=== PATIENT | female | born 1970 ===

== ENCOUNTER 2017-05-13 06:38 | Day surgery (SDC) | payer BC ==
[~2017-05-13 06:38] MED LIST: Lactated Ringers 1,000 ML IV SCH; Lidocaine 1%/Sod Bicarbonate in NS 8.4% 1 ML Syringe IV PRN; Sodium Chloride 0.9% 10 ML Syringe FLUSH PRN
[2017-05-13] MEDS ORDERED: Bupivacaine 0.5% 30 ML SDV ONE (07:03)
[2017-05-13] MEDS ORDERED: Lidocaine 1% with EPINEPHrine 1:100,000 20 ML MDV ONE (07:03)
[2017-05-13] MEDS ORDERED: Sodium Chloride 0.9% 50 ML SDV ONE (07:03)
[2017-05-13] MEDS ORDERED: Midazolam 1 MG/ML 2 ML SDV ONE (07:14)
[2017-05-13] MEDS ORDERED: Propofol 200 MG/20 ML SDV ONE (07:14)
[2017-05-13] MEDS ORDERED: ceFAZolin 1 GM Vial ONE (07:14)
[2017-05-13] MEDS ORDERED: Ondansetron 4 MG/2 ML SDV ONE (07:14)
[2017-05-13] MEDS ORDERED: fentaNYL 250 MCG/5 ML SDV ONE (07:14)
[2017-05-13] MEDS ORDERED: Lactated Ringers 1,000 ML ONE ×2 (07:14→10:00)
[2017-05-13] MEDS ORDERED: Rocuronium 50 MG/5 ML Vial ONE ×2 (07:14→09:06)
[2017-05-13] MEDS ORDERED: Ketorolac 30 MG/ML SDV ONE (07:15)
[2017-05-13] MEDS ORDERED: Lidocaine 1% 4 ML ONE (07:15)
[2017-05-13] MEDS ORDERED: Dexamethasone 4 MG/ML 5 ML MDV ONE (07:15)
--- NOTE | 2017-05-13 07:34 | PCM.PREANE ---
Preanesthetic Assessment - Anesthesia/Transfusion/Family Hx Anesthesia History: Prior Anesthesia Without Reaction Family History of Anesthesia Reaction: No Transfusion History: No Prior Transfusion(s) - Review of Systems General: No Symptoms Pulmonary: No Symptoms Cardiovascular: No Symptoms, Other (High Cholesterol) Gastrointestinal: No Symptoms Neurological: No Symptoms Other: Reports: None - Physical Assessment NPO Status Date: 05/12/17 NPO Status Time: 20:00 O2 Sat by Pulse Oximetry: 99 Respiratory Rate: 16 Vital Signs: Last Vital Signs Temp 36.6 C 05/13/17 06:55 Pulse 71 05/13/17 06:55 Resp 16 05/13/17 06:55 BP 140/81 05/13/17 06:55 Pulse Ox 99 05/13/17 06:55 Height: 1.5 m Weight: 65.317 kg ASA Class: 2 Mental Status: Alert & Oriented x3 Airway Class: Mallampati = 2 Dentition: Reports: Normal Dentition Thyro-Mental Finger Breadths: 3 Mouth Opening Finger Breadths: 3 ROM/Head Extension: Full Lungs: Clear to Auscultation, Normal Respiratory Effort Cardiovascular: Regular Rate, Regular Rhythm - Lab Values: Laboratory Last Values WBC 6.02 K/mm3 (3.98-10.04) 05/12/17 13:35 RBC 4.92 M/mm3 (3.98-5.22) 05/12/17 13:35 Hgb 12.6 gm/L (11.2-15.7) 05/12/17 13:35 Hct 40.9 % (34.1-44.9) 05/12/17 13:35 MCV 83.1 fl (79.4-94.8) 05/12/17 13:35 MCH 25.6 pg (25.6-32.2) 05/12/17 13:35 MCHC 30.8 g/dl (32.2-35.5) L 05/12/17 13:35 Plt Count 362 K/mm3 (182-369) 05/12/17 13:35 MPV 10.5 fl (9.4-12.3) 05/12/17 13:35 Neut % (Auto) 60.5 % (34.0-71.1) 05/12/17 13:35 Lymph % (Auto) 28.1 % (19.3-51.7) 05/12/17 13:35 [place] % (Auto) 8.3 % (4.7-12.5) 05/12/17 13:35 Eos % (Auto) 1.8 (0.7-5.8) 05/12/17 13:35 Baso % (Auto) 0.8 % (0.1-1.2) 05/12/17 13:35 Neut # (Auto) 3.64 K/mm3 (1.56-6.13) 05/12/17 13:35 Lymph # (Auto) 1.69 K/mm3 (1.18-3.74) 05/12/17 13:35 [place] # (Auto) 0.50 K/mm3 (0.24-0.36) H 05/12/17 13:35 Eos # (Auto) 0.11 K/mm3 (0.04-0.36) 05/12/17 13:35 Baso # (Auto) 0.05 K/mm3 (0.01-0.08) 05/12/17 13:35 Manual Slide Review Abnormal smear 05/12/17 13:35 Creatinine 0.7 mg/dL (0.55-1.02) 05/12/17 13:35 Est Cr Clr Drug Dosing TNP 05/12/17 13:35 Estimated GFR (MDRD) > 60 mL/min (>60) 05/12/17 13:35 Urine Color Yellow (Yellow) 05/12/17 13:35 Urine Appearance Clear (Clear) 05/12/17 13:35 Urine pH 7.0 (5.0-8.0) 05/12/17 13:35 Ur Specific [place] 1.020 (1.005-1.030) 05/12/17 13:35 Urine Protein Negative (Negative) 05/12/17 13:35 Urine Glucose (UA) Negative (Negative) 05/12/17 13:35 Urine Ketones Negative (Negative) 05/12/17 13:35 Urine Occult Blood 2+ (Negative) H 05/12/17 13:35 Urine Nitrite Negative (Negative) 05/12/17 13:35 Urine Bilirubin Negative (Negative) 05/12/17 13:35 Urine Urobilinogen 0.2 (0.2-1.0) 05/12/17 13:35 Ur Leukocyte Esterase Negative (Negative) 05/12/17 13:35 Urine HCG, Qual Negative (NEGATIVE) 05/12/17 13:35 Blood Type A NEGATIVE 05/12/17 13:35 Gel Antibody Screen Negative 05/12/17 13:35 - Allergies Allergies/Adverse Reactions: Allergies Allergy/AdvReac Type Severity Reaction Status Date / Time No Known Allergies Allergy Verified 05/12/17 15:04 - Acknowledgements Anesthesia Type Planned: General Anesthesia Pt an Appropriate Candidate for the Planned Anesthesia: Yes Alternatives and Risks of Anesthesia Discussed w Pt/Guardian: Yes Pt/Guardian Understands and Agrees with Anesthesia Plan: Yes PreAnesthesia Questionnaire Cardiovascular History: Reports: High Cholesterol Respiratory History: Reports: None Gastrointestinal History: Reports: None Genitourinary History: Reports: None [employer] History: Reports: , Other (See Below) Other OB/BYN History: uterine fibroids, enlarged uterus, menorrhagia, elective , Musculoskeletal History: Reports: None Neurological History: Reports: None Psychiatric History: Reports: None Endocrine/Metabolic History: Reports: None Hematologic History: Reports: Anemia Immunologic History: Reports: None Oncologic (Cancer) History: Reports: None Dermatologic History: Reports: None - Past Surgical History Head Surgeries/Procedures: Reports: None HEENT Surgical History: Reports: Myringotomy w Tube(s) Cardiovascular Surgical History: Reports: None Respiratory Surgical History: Reports: None GI Surgical History: Reports: None Female Surgical History: Reports: None Male Surgical History: Reports: None Endocrine Surgical History: Reports: None Neurological Surgical History: Reports: None Musculoskeletal Surgical History: Reports: None Oncologic Surgical History: Reports: None Dermatological Surgical History: Reports: None - SUBSTANCE USE Smoking Status *Q: Never Smoker Recreational Drug Use History: No - HOME MEDS Home Medications: Home Meds Ferrous Sulfate [Iron] 325 mg PO BID 05/12/17 [History] Multivitamin [Multi-Vitamin Daily] 1 tab PO DAILY 05/12/17 [History] - CURRENT (IN HOUSE) MEDS Current Meds: Current Medications Lactated Ringer's (Ringers, Lactated) 1,000 mls @ 125 mls/hr IV ASDIRECTED VISH Stop: 05/13/17 23:00 Last Admin: 05/13/17 07:10 Dose: 125 mls/hr Lidocaine/Sodium Bicarbonate (Buffered Lidocaine 1% In Ns 8.4%) 0.25 ml IV ONETIME PRN PRN Reason: Prior to IV Start Stop: 05/13/17 18:00 Last Admin: 05/13/17 07:10 Dose: 0.25 ml Sodium Chloride (Saline Flush) 10 ml FLUSH ASDIRECTED PRN PRN Reason: Keep Vein Open Stop: 05/13/17 18:00 Discontinued Medications Bupivacaine HCl (Marcaine 0.5%) Confirm Administered Dose 30 ml .ROUTE .STK-MED ONE Stop: 05/13/17 07:04 Cefazolin Sodium (Ancef) Confirm Administered Dose 2 gm .ROUTE .STK-MED ONE Stop: 05/13/17 07:15 Dexamethasone (Dexamethasone) Confirm Administered Dose 20 mg .ROUTE .STK-MED ONE Stop: 05/13/17 07:16 Fentanyl (Sublimaze) Confirm Administered Dose 250 mcg .ROUTE .STK-MED ONE Stop: 05/13/17 07:15 Lactated Ringer's (Ringers, Lactated) Confirm Administered Dose 1,000 mls @ as directed .ROUTE .ST-MED ONE Stop: 05/13/17 07:15 Lidocaine HCl (Xylocaine-Mpf 1%) Confirm Administered Dose 4 mls @ as directed .ROUTE .STK-MED ONE Stop: 05/13/17 07:16 Ketorolac Tromethamine (Toradol) Confirm Administered Dose 30 mg .ROUTE .STK- MED ONE Stop: 05/13/17 07:16 Lidocaine/Epinephrine (Xylocaine 1% With Epinephrine 1:100,000) Confirm Administered Dose 20 ml .ROUTE .STK-MED ONE Stop: 05/13/17 07:04 Midazolam HCl (Versed 1 Mg/Ml) Confirm Administered Dose 2 mg .ROUTE .STK-MED ONE Stop: 05/13/17 07:15 Ondansetron HCl (Zofran) Confirm Administered Dose 4 mg .ROUTE .STK-MED ONE Stop: 05/13/17 07:15 Propofol (Diprivan 20 Ml) Confirm Administered Dose 400 mg .ROUTE .STK-MED ONE Stop: 05/13/17 07:15 Rocuronium [place] (Zemuron) Confirm Administered Dose 50 mg .ROUTE .STK-MED ONE Stop: 05/13/17 07:15 Sodium Chloride (Normal Saline) Confirm Administered Dose 50 ml .ROUTE .STK-MED ONE Stop: 05/13/17 07:04
[2017-05-13] MEDS ORDERED: ePHEDrine/Normal Saline 25 MG/5 ML Syringe ONE (09:07)
[2017-05-13] MEDS ORDERED: Neostigmine Methylsulfate 1 MG/ML 5 ML Syringe ONE (09:10)
[2017-05-13] MEDS ORDERED: HYDROmorphone 1 MG/ML Syringe ONE (09:10)
[2017-05-13] MEDS ORDERED: Ondansetron 4 MG/2 ML SDV IVPUSH PRN ×2 (09:25→10:47)
[2017-05-13] MEDS ORDERED: Acetaminophen/oxyCODONE 325-5 MG Tab PO PRN (09:25)
[2017-05-13] MEDS ORDERED: Ketorolac 30 MG/ML SDV IVPUSH SCH (09:30)
--- NOTE | 2017-05-13 09:36 | PCM.POSTAN ---
POST ANESTHESIA ASSESSMENT - MENTAL STATUS Mental Status: Alert, Oriented - VITAL SIGNS Pulse Rate: 77 SaO2: 98 Resp Rate: 13 Blood Pressure: 141/71 Temperature: 36.6 C - RESPIRATORY Respiratory Status: Respiratory Rate WNL, Airway Patent, O2 Saturation Stable, Supplemental Oxygen - CARDIOVASCULAR CV Status: Pulse Rate WNL, Blood Pressure Stable - GASTROINTESTINAL GI Status: No Symptoms - PAIN Pain Score: 0 - POST OP HYDRATION Hydration Status: Adequate & Stable
[2017-05-13] MEDS ORDERED: HYDROmorphone 0.5 MG/0.5 ML Syringe IVPUSH PRN (10:47)
[2017-05-13] MEDS ORDERED: fentaNYL 100 MCG/2 ML SDV IVPUSH PRN (10:47)
--- NOTE | 2017-05-13 12:26 | PCM.OPNOTE ---
- General Post-Op/Procedure Note Date of Surgery/Procedure: 05/13/17 Operative Procedure(s): Total vaginal hysterectomy with bilateral salpingectomy Findings: 1. Uterine enlargement 2. Uterine fibroids with largest being consistent with ultrasound finding of 6.9 cm 3. Ovaries within normal limits bilaterally 4. Fallopian tubes normal bilaterally Pre Op Diagnosis: 1. Menorrhagia. 2. Resultant chronic blood loss anemia history. 3. Uterine fibroidsmultiple intramural and subserosal. 4. Uterine enlargement Post-Op Diagnosis: Same Anesthesia Technique: General ET Tube Other Anesthesia Type: Lidocaine quarter percent with epi local20 mL total Primary Surgeon: Dio Moreira Secondary Surgeon: Imtiaz Lechuga Anesthesia Provider: Arlette Alan Dental Mechanic: Surjit Jamison Reason Dental Mechanic Was Necessary: Retraction, stones, patient safety and quality of care Role of Dental Mechanic: Retraction and assistance. Pathology: Uterus-morcellated and bilateral fallopian tubes in one specimen container Fluid Replacement, Intraop: 2,000 EBL in mLs: 250 Complications: None Condition: Good Free Text/Narrative:: Intake & Output 05/12/17 05/13/17 05/13/17 22:59 06:59 14:59 Intake Total 550 Balance 550 Surgery duration: 57 minutes Procedure: The patient was placed in supine position on the operating table. General endotracheal anesthesia was accomplished. After positioning, and adequate prep and drape, the procedure was then performed. Sterile speculum was placed in the vagina and cervix was visualized. Cervix was injected with lidocaine quarter percent with [id number] mL used. A full circumference incision was made in the cervical epithelium. The bladder was pushed well back off cervix. Posterior cul-de-sac was then entered sharply without problems. Left uterosacral was crossclamped with a Enseal vessel closure system. The left uterosacral and then the right uterosacral ligament pedicles were developed using the Enseal system. The anterior cul-de-sac was then entered without problems and the uterine vasculature, cardinal ligament and broad ligament then developed using Enseal vessel closure system. Because of the very large size of the uterus morcellation of the posterior aspect uterus was then undertaken. A wedge of the posterior uterus was removed to ensure with sharp dissection. Anteriorly dissection was made down to the anterior fibroid and this was removed. A second fibroid in the fundal area anteriorly was also removed. With this the uterus then collapsed adequately to remove this. The upper broad ligament and the fallopian tube along with the round ligament were then crossclamped with a Dalia clamp on each side. Specimen was totally removed. Both these pedicles were then secured with a Dalia stitch of #1 Vicryl. The fallopian tubes were individually removed using the Enseal vessel closure system. There are sent with the uterine specimen. Vaginal cuff was sutured for hemostatic reasons with a running locked suture of 0 Monocryl from the 2 o'clock position to the 10 o'clock position posteriorly. A modified Moschcowitz procedure was then performed to reapproximate the uterosacral ligaments midline and secure them to the vaginal cuff for support purposes. This suture was tied down only after the vaginal cuff was completely closed. Vaginal cuff was then closed from right to left side with a running locked suture of 0 Monocryl. Patient was returned to supine position and awakened from general endotracheal anesthesia. She tolerated the procedure was then left the operating room in satisfactory condition.
== END 2017-05-13 12:25 | disposition home or self-care (01) ==
LOC: JD.SDS 06:38
PROVIDERS: ATTEND Obstetrics & Gynecology
DX: D25.1 Intramural leiomyoma of uterus (principal); N72 Inflammatory disease of cervix uteri; N80.0 Endometriosis of uterus; N83.8 Other noninflammatory disorders of ovary, fallopian tube and broad ligament; E78.1 Pure hyperglyceridemia; Z79.899 Other long term (current) drug therapy
CPT/HCPCS: 36415; 58291; 81003; 81025; 82565; 85025; 86850; 86900; 86901; J0690; J1100; J1170; J1885; J2250; J2405; J2710; J3010; J7050; J7120; 00840; J2001; J2704